=== PATIENT | male | born 1965 | race Caucasian/White ===

== ENCOUNTER → 2023-11-16 06:16 | Day surgery (SDC) | payer BC, SELFPAY | LOC: GI 06:16 | PROVIDERS: ATTENDING PHYSICIAN Internal Medicine Gastroenterology | DX: Z12.11 Encounter for screening for malignant neoplasm of colon (principal); K64.8 Other hemorrhoids | CPT/HCPCS: G0121 ==

== ENCOUNTER 2024-09-12 09:12 | Emergency (ER) | payer BC, SELFPAY ==
[2024-09-12 09:17] VITALS: BP 120/75
--- NOTE | 2024-09-12 09:49 | ED.GENMED ---
History of Present Illness
General
Chief Complaint: Allergic Reaction
Source: patient
Exam Limitations: none
Time Seen by Provider: 09/12/24 09:37
History of Present Illness
History of Present Illness:
59yoM with a history of hypertension and prior allergic reaction to bee sting presenting to the ED after a bee sting. Patient was outside doing some yard work <1 hour ago when he was stung several times by yellow jackets in his ankle region. He
immediately administered an EpiPen within 5 minutes of the sting due to his prior allergic reaction although he denies having any symptoms prior to giving himself the EpiPen. He is currently asymptomatic and denies any shortness of breath, facial
swelling, dysphagia, vomiting, diarrhea. He was seen in the ED in 2021 for an allergic reaction after a yellow jacket sting.
Past History
Past History
ED Past Medical History: Cancer (Melanoma, tongue cancer resection), GERD, HTN and Psychiatric (Anxiety, depression)
Social History
Tobacco: Non-smoker
Alcohol: Occasional
Drug: None
Personal:
Living: with family
Employment: Employed
Family History
Family History: Other (Noncontributory)
Phy Exam
General Physical Exam
General Presentation: well appearing and no apparent distress
General Skin: warm and dry
General Habitus: normal
General Mental: alert
ENT Exam
ENT Exam: normocephalic and other (Airway patent. No oropharyngeal swelling. Normal phonation.)
Cardiovascular Exam
Cardiovascular Exam: regular rate/rhythm and no murmur
Pulmonary Exam
Pulmonary Exam: lungs clear, no respiratory distress, no rales, no crackles, no rhonchi, no wheezing and other (No wheezing or stridor. Speaking in full sentences without difficulty. )
Neurological Exam
Neurological Exam: alert
Bria Coma Scale
Eye Opening: Spontaneous
Verbal Response: Oriented
Motor Response: Obeys Commands
GCS Total Score: 15
Skin Exam
Skin Exam: normal color, warm/dry and other (Small area of irritation to both ankles in the area of the stings. No urticaria.)
Psychiatric Exam
Psychiatric Exam: normal mood/affect
Course
Orders/Labs/Results
Orders:
Orders
09/12/24 09:49
Cardiac Monitoring- Treatment ONCE
Vital Signs
Initial and Last Documented VS:
Initial Vital Signs
Temp Pulse Resp BP Pulse Ox
98.0 F 120 16 120/75 98
09/12/24 09:17 09/12/24 09:17 09/12/24 09:17 09/12/24 09:17 09/12/24 09:17
Last Documented Vital Signs
Temp Pulse Resp BP Pulse Ox
98.0 F 68 14 109/71 98
09/12/24 09:17 09/12/24 11:24 09/12/24 11:24 09/12/24 11:24 09/12/24 11:24
MDM/Problems Addressed
Differential Diagnosis Includes:
59yoM here after giving himself an EpiPen 5 minutes after being stung by yellow jackets. Hx of prior allergy to yellow mat sting although he denies having any symptoms prior to epinephrine administration. Asymptomatic on initial exam. VSS. He is
well appearing in no distress. Lungs CTA. No evidence of angioedema or urticaria noted.
Patient monitored for 2+ hours and he remains asymptomatic. Patient stable for discharge. Supportive care discussed and refill given for an EpiPen. ED return precautions reviewed.
*Pulse Oximetry
SaO2: 94
Oxygen Mode of Delivery: Room air
Patient hypoxic: no (98%)
*Critical Care Note
Total Time (30-74mins, 75-104mins- exclusive of procedures): Not Applicable
ED Attending Note
-
Portions of this chart may have been created with voice recognition software.� Occasional wrong word or��sound alike� substitutions may have occurred due to the inherent limitations of voice recognition software.
Discharge Plan
Departure
Patient Disposition: Home (Routine Discharge)
Date of Disposition: 09/12/24
Time of Disposition: 11:54
Patient with high blood pressure during this ER visit?: No
Discharge Problem:
Accidental bee sting
Instructions: Insect bites and stings - ED discharge instructions
Prescriptions:
New
epinephrine [EpiPen] 0.3 mg/0.3 mL auto-injector
0.3 mg IM .STAT PRN (Reason: anaphylaxis) Qty: 1 0RF
No Action
lisinopril-hydrochlorothiazide 1 EACH tablet
1 ea PO DAILY
epinephrine [EpiPen] 0.3 mg/0.3 mL auto-injector
0.3 mg IM ONCE Qty: 1 3RF
famotidine [Pepcid] 40 mg tablet
40 mg PO DAILY Qty: 5 0RF
hydroxyzine HCl 50 mg tablet
50 mg PO TID Qty: 10 0RF
prednisone 50 mg Tablet
50 mg PO DAILY Qty: 4 0RF
Referrals:
Eldon Carter MD [Family Provider, Family Practice]
Activity Restrictions/Additional Instructions:
Take Benadryl 25 mg every 6 hours as needed for itching/hives. Administer an EpiPen with any trouble breathing or swallowing.
Please follow-up with your family doctor. Return to the ER with any worsening symptoms or if you have to use your EpiPen.
Interventions
Interventions:
*Risk Screen - Suicide Last Done: 09/12/24 09:17
*Neglect/Abuse Screening Last Done: 09/12/24 09:17
*Nursing Disposition Last Done: 09/12/24 12:02
ED- Cardiac Assessment Last Done: 09/12/24 09:34
ED- Pulmonary Assessment Last Done: 09/12/24 09:34
ED-Skin Assessment Last Done: 09/12/24 09:32
Discharge Date and Time
Discharge Date/Time: 09/12/24 12:03
Print Language: YORUBA
[2024-09-12 11:24] VITALS: BP 109/71
== END 2024-09-12 12:03 | disposition home or self-care (01) ==
LOC: EMR 09:12
PROVIDERS: EMERGENCY PHYSICIAN Emergency Medicine; FAMILY PHYSICIAN Family Medicine
DX: T63.441A Toxic effect of venom of bees, accidental (unintentional), initial encounter (principal); F41.8 Other specified anxiety disorders; I10 Essential (primary) hypertension; Z85.810 Personal history of malignant neoplasm of tongue; Z85.820 Personal history of malignant melanoma of skin
CPT/HCPCS: 99282